=== PATIENT | male | born 1975 | race Caucasian/White ===

== ENCOUNTER 2020-06-21 22:39 | Emergency (ER) | payer OTHER ==
[~2020-06-21] VITALS: Ht 188 cm; Wt 136.1 kg
[~2020-06-21 22:39] MED LIST: ADDERALL; AMBIEN PO; AMOXICILLIN875 MG PO; BACTRIM DS TAB1 EACH PO; CARISOPRODOL 3350 MG PO; CIPROFLOXACIN500 M1 PO; EFFEXOR XR; INDERAL; KEFLEX500 MG PO; LORTAB 5 MG/5001 TAB PO; NASONEX17 GM NS; NORCO 5-325 TA1 EACH PO; OXYCODONE HCL40 MG PO; VALIUM5 MG PO
[2020-06-22 01:32] VITALS: BP 118/56
== END 2020-06-22 02:30 | disposition home or self-care (01) ==
LOC: ER 22:39
DX: M25.561 Pain in right knee (principal); M25.562 Pain in left knee; M79.89 Other specified soft tissue disorders; W00.0XXA Fall on same level due to ice and snow, initial encounter; Y93.9 Activity, unspecified; Y92.89 Other specified places as the place of occurrence of the external cause; Y99.8 Other external cause status